=== PATIENT | male | born 1975 | race Caucasian/White ===

== ENCOUNTER 2017-01-05 20:28 | Emergency (ER) | payer BC ==
[2017-01-05 20:45] VITALS: BP 149/90; BMI 30.1
[2017-01-05] MEDS ORDERED: NS IRRIGATION 1000 ML 1,000 ML ONE (21:56)
[2017-01-05] MEDS ORDERED: XYLOCAINE 1 % (PLAIN) ONE (22:29)
[2017-01-05] MEDS ORDERED: BACITRACIN ZINC ONE (22:51)
--- NOTE | 2017-01-05 22:56 | DR.GENAD ---
HPI - PCP Primary Care Physician: ANATOLIY - Complaint/Symptoms Chief Complaint Doctors Comments: History as stated. The .45 recoiled and injured the left proximal thumb Chief Complaint:: CUT THUMB WHILE SHOOTING A PISTOL - Source History Provided: Patient - Mode of Arrival Mode of Arrival: Ambulatory - Timing Onset of Chief Complaint: 01/05/17 PMH - PMH Past Medical History: Yes Past Medical History: Sleep Apnea Past Surgical History: Yes Past Surgical History Comment: NECK SURGERY FUSION OF C-5 THROUGH C-7 - Family History History of Family Medical Conditions: Yes Family Medical History: Heart Failure, Sudden Cardiac Family Medical History Comment: A-FIBB - Social History Does patient currently use any type of tobacco product: No Have you used tobacco products in the last 12 months: No Type of Tobacco Use: None Does any household member use tobacco: No Alcohol Use: None Do you use any recreational Drugs:: No Lives With: Spouse Lives Where: Home - infectious screening In the last 2 months have you had wt loss of >10#?: NO Have you had fever, night sweats or hemotysis?: No Have you traveled outside the country in the last 6 months?: No Isolation: Standard ROS - Review of Systems Constitutional: No Symptoms Reported Eyes: No Symptoms Reported ENTM: No Symptoms Reported Respiratoy: No Symptoms Reported Cardiovascular: No Symptoms Reported Gastrointestinal/Abdominal: No Symptoms Reported Genitourinary: No Symptoms Reported Neurological: No Symptoms Reported Musculoskeletal: Left, Other (thumb injury) Integumentary: No Symptoms Reported Hematologic/Lymphatic: No Symptoms Reported Endocrine: No Symptoms Reported Psychiatric: No Symptoms Reported All Other Systems: Reviewed and Negative PE - Vital Signs Vitals: Temperature 98.3 F Pulse Rate 86 Respiratory Rate 20 Blood Pressure 149/90 O2 Sat by Pulse Oximetry 97 - General Limitations: No Limitations General Appearance: Alert, In No Apparent Distress - Head Head Exam: Normal Inspection, Atraumatic - Eyes Eye exam: Normal Appearance, PERRL, EOMI - ENT ENT Exam: Normal Exam External Ear Exam: Normal External Inspection TM/Canal Exam: Bilateral Normal Nose Exam: Normal Nose Exam Mouth Exam: Normal Inspection Throat Exam: Normal Inspection - Neck Neck Exam: Normal Inspection - Respiratory Respiratory Exam: Normal Lung Sounds Bilat Respiratory Exam: Bilateral Clear to Auscultation - Cardiovascular Cardiovascular Exam: Regular Rate, Normal Rhythm - Abdominal Exam Abdominal Exam: Normal Inspection Abdominal Tenderness: negative: RUQ, RLQ, LUQ, LLQ, Epigastrium, Suprapubic, Diffuse, Mild, Moderate, Severe, Other - Extremities Extremities Exam: Other (laceration to the left proximal MP joint) - Neurologic Neurological Exam: Alert, Oriented X3, CN II-XII Intact - Psychiatric Psychiatric Exam: Normal Affect - Skin Skin Exam: Warm, Dry, Other (A 2cm laceration to the proximal MP joint) Procedures - Laceration/Wound Repair Left Thumb Wound Length (cm): 2 Wound's Depth, Shape: Superficial, Linear Wound Explored: clean Betadine Prep?: Yes Anesthesia: 1% Lidocaine Wound Debrided: minimal Wound Repaired With: sutures Suture Size/Type: 4:0, Ethilion Number of Sutures: 6 - Diagnosis Discharge Problem: Thumb laceration Qualifiers: Encounter type: initial encounter Laterality: left Qualified Code(s): S61.012A - Laceration without foreign body of left thumb without damage to nail, initial encounter - Discharge Plan Condition: Stable - Follow ups/Referrals Follow ups/Referrals: Roni Rothman [Primary Care Provider] - 3 days - Instructions
[2017-01-05] MEDS ORDERED: ADACEL TDaP IM ONE ×2 (23:00→23:04)
[2017-01-05] MEDS ORDERED: BACITRACIN ZINC TOP SCH ×4 (23:06→23:53)
[2017-01-05] MEDS ORDERED: BACITRACIN ZINC TOP STA (23:07)
[2017-01-05] MEDS ORDERED: HYDROGEN PEROXIDE 3% ONE (23:23)
[2017-01-06] MEDS ORDERED: BACITRACIN ZINC TOP ONE ×3 (22:54→23:02)
== END 2017-01-05 23:45 | disposition home or self-care (01) ==
LOC: ER 20:28
PROC: 0XQM0ZZ Repair Left Thumb, Open Approach (ICD-10-PCS; principal; 2017-01-05)
DX: S61.012A Laceration without foreign body of left thumb without damage to nail, initial encounter (principal); W45.8XXA Other foreign body or object entering through skin, initial encounter; Y92.9 Unspecified place or not applicable
CPT/HCPCS: 12001; 90471; 99282; 99283; J2001